=== PATIENT | female | born 1970 | race Hispanic/Latino ===

== ENCOUNTER 2017-04-28 21:56 | Emergency (ER) | payer MEDICAID ==
[2017-04-28 22:11] VITALS: BP 149/91
--- NOTE | 2017-05-02 00:27 | ED Elopement Review ---
ED Pt Elopement review - Call Back decision Pt Call Back Decision: Pt to F/U with PMD
== END 2017-04-29 06:24 | disposition left against medical advice (07) ==
LOC: ED 21:56
DX: R53.1 Weakness (principal); Z53.21 Procedure and treatment not carried out due to patient leaving prior to being seen by health care provider

== ENCOUNTER 2019-06-09 08:20 | Emergency (ER) | payer MEDICAID ==
[2019-06-09 08:31] VITALS: BP 177/96
[2019-06-09] MEDS ORDERED: NORCO 5/325 PO ONE (09:09)
--- NOTE | 2019-06-09 09:25 | Emergency Department Report ---
HPI - General Chief Complaint: Fall Time Seen by Provider: 06/09/19 08:53 - HPI HPI: 48-year-old female presents to the emergency department with complaint of some right lower rib pain and a cough. She says that she fell in the shower about 6 days ago onto that lower right side of the chest. She went to [facility] for similar symptoms, 2 days ago, but says that they focused mostly on her abdomen and she is unsure whether they got any imaging of her chest or ribs. She continues to have discomfort and now has developed a mixed dry and productive cough. She has not taken anything for her symptoms prior to presentation. She has a past medical history of congestive heart failure and hypertension. Her primary care physician is Dr. Osborne. She is a tobacco smoker but denies any illicit drug use. ED Past Medical Hx - Past Medical History Hx Hypertension: Yes Hx Congestive Heart Failure: Yes Additional medical history: Hep C - Surgical History Past Surgical History?: Yes Additional Surgical History: Tubal ligation - Social History Smoking Status: Current Every Day Smoker Substance Use Type: None - Medications Home Medications: Home Medications Medication Instructions Recorded Confirmed Last Taken Type HYDROcodone/APAP 5-325 [[place] 1 - 2 each PO Q4-6H PRN #15 tablet 12/24/13 Unknown Rx 5/325 mg] Ibuprofen [Motrin 800 MG tab] 800 mg PO Q8H PRN #20 tablet 12/24/13 Unknown Rx Labetalol [Labetalol 200mg TAB] 200 mg PO TID 12/24/13 12/24/13 Unknown History ALBUTEROL Inhaler (OR & NICU) 2 puff IH QID PRN #1 inhalation 06/09/19 Unknown Rx [ProAir HFA Inhaler] guaiFENesin/CODEINE [Robitussin AC] 5 ml PO Q6H PRN #100 ml 06/09/19 Unknown Rx ED Review of Systems ROS: Stated complaint: FALL/RT SIDE PAIN/COUGH Other details as noted in HPI Comment: All other systems reviewed and negative Constitutional: denies: chills, fever Eyes: denies: eye pain, vision change Respiratory: cough. denies: shortness of breath Cardiovascular: chest pain (right lower lateral chest/rib pain). denies: edema Gastrointestinal: denies: abdominal pain, vomiting Musculoskeletal: denies: back pain, arthralgia Neurological: denies: headache, weakness Physical Exam - Physical Exam Vital Signs: Vital Signs 06/09/19 08:30 Temperature 97.7 F Pulse Rate 90 Respiratory 19 Rate Blood Pressure 177/96 O2 Sat by Pulse 97 Oximetry Physical Exam: GENERAL: The patient is well-developed well-nourished. HENT: Normocephalic. Atraumatic. Patient has moist mucous membranes. EYES: Extraocular motions are intact. Pupils equal reactive to light bilate rally. NECK: Supple. Trachea is midline. CHEST/LUNGS: Clear to auscultation. There is no respiratory distress noted. There is some reproducible tenderness to palpation along the right lower lateral chest wall/rib cage but no obvious deformity. HEART/CARDIOVASCULAR: Regular. A productive sounding cough heard during examination. No tachypnea or accessory muscle use. There is no tachycardia. There is no murmur. ABDOMEN: Abdomen is soft, nontender. Patient has normal bowel sounds. There is no abdominal distention. SKIN: Skin is warm and dry. NEURO: The patient is awake, alert, and oriented. The patient is cooperative. The patient has no focal neurologic deficits. Normal speech. MUSCULOSKELETAL: There is no tenderness or deformity. There is no evidence of acute injury. ED Course Vital Signs 06/09/19 08:30 Temperature 97.7 F Pulse Rate 90 Respiratory 19 Rate Blood Pressure 177/96 O2 Sat by Pulse 97 Oximetry ED Medical Decision Making - Radiology Data Radiology results: image reviewed interpreted by me: X-ray of the chest with right-sided rib series does not show any fracture, pneumothorax, focal consolidation, pneumonia, pleural effusions, or any other acute process. - Medical Decision Making Patient presents with continued right lower rib pain after falling in the shower about 6 days ago. She was arty seen at another emergency department and apparently they focused on her abdomen at that time without any acute process found. She does have a cough heard during examination but no signs of any respiratory distress. The chest x-ray did not show any pneumonia, pleural eff usions, focal consolidation, rib fracture, pneumothorax, or any other acute process. Patient was given a pain pill for her discomfort. Vital signs stable throughout her ED course. She appears safe for discharge home at this time. She's been given an albuterol inhaler, some Robitussin-AC for her cough and discomfort, and encouraged to follow up with her primary care physician. She will return to the emergency Department with any worsening of her symptoms or any acute distress. - Differential Diagnosis rib fracture, pneumothorax, pneumonia, CHF Critical Care Time: No Critical care attestation.: If time is entered above; I have spent that time in minutes in the direct care of this critically ill patient, excluding procedure time. ED Disposition Clinical Impression: Cough Bruised ribs Qualifiers: Encounter type: initial encounter Laterality: right Qualified Code(s): S20.211A - Contusion of right front wall of thorax, initial encounter Hypertension Qualifiers: Hypertension type: essential hypertension Qualified Code(s): I10 - Essential (primary) hypertension Disposition: TO HOME OR SELFCARE Is pt being admited?: No Condition: Stable Instructions: Hypertension (ED) Additional Instructions: The chest x-ray did not show any rib fracture and the lungs appear clear. You most likely have a rib contusion or bruised ribs. This obviously can still be q uite painful, but she will need to remember to continue to take at least 10 deep breaths per hour while awake to avoid developing pneumonia. I have prescribed for you a cough medication to be taken at night or when you have no responsibilities. Follow-up with your primary care physician. Return to the emergency Department with any worsening of your symptoms or any acute distress. Please try and quit smoking. Take your blood pressure medications as prescribed. Try and stay away from foods that are high in salt and caffeinated products. Keep a blood pressure log. Prescriptions: ALBUTEROL Inhaler (OR & NICU) [ProAir HFA Inhaler] 2 puff IH QID PRN #1 inhalation PRN Reason: Shortness Of Breath guaiFENesin/CODEINE [Robitussin AC] 5 ml PO Q6H PRN #100 ml PRN Reason: Cough Referrals: PRIMARY CARE, [Primary Care Provider] - 2-3 Days Time of Disposition: 10:11
--- NOTE | 2019-06-09 10:04 | XRay Report ---
RIGHT RIBS, PA CHEST RADIOGRAPH HISTORY: Fall 6 days ago in a bathtub. Right chest wall pain. COMPARISON: None. TECHNIQUE: 3 views of the right ribs were obtained. Single view of the chest also obtained. FINDINGS: Right Ribs: Bones: No fracture or dislocation. Joint spaces: Maintained. Soft tissues: No significant abnormality. Chest: Cardiomediastinal silhouette: Normal cardiac size. Normal mediastinal contours. Lungs: Normal expansion. Normal lung aeration. No pleural effusions. No pneumothorax. Pulmonary vascularity: Normal. Additional findings: None. IMPRESSION: Normal chest and ribs. Signer Name: Erasmo Hoover MD Signed: 06/09/2019 10:00 AM Workstation Name: [id number]
== END 2019-06-09 10:28 | disposition home or self-care (01) ==
LOC: ED 08:20
DX: S20.211A Contusion of right front wall of thorax, initial encounter (principal); I11.0 Hypertensive heart disease with heart failure; I50.9 Heart failure, unspecified; F17.200 Nicotine dependence, unspecified, uncomplicated; Z86.19 Personal history of other infectious and parasitic diseases; Z98.51 Tubal ligation status; Z79.899 Other long term (current) drug therapy; W18.12XA Fall from or off toilet with subsequent striking against object, initial encounter; Y93.89 Activity, other specified; Y92.89 Other specified places as the place of occurrence of the external cause; Y99.8 Other external cause status
CPT/HCPCS: 99283

== ENCOUNTER 2021-06-20 13:34 | Emergency (ER) | payer MEDICAID ==
[2021-06-20 13:45] VITALS: BP 172/78
[2021-06-20 15:00] LABS: Bilirubin,Urine NEG (Negative); Blood,Urine SM (Negative); Color,Urine Straw (Yellow); HCG Qualitative,Urine Negative (Negative); Protein,Urine <15 mg/dL mg/dL (Negative); RBC,Urine < 1.0 /HPF (0.0-6.0); Urobilinogen,Urine < 2.0 mg/dL (<2.0)
--- NOTE | 2021-06-20 15:30 | Emergency Department Report ---
ED Female HPI - General Chief complaint: Vaginal Bleeding Stated complaint: VAGINAL BLEEDING Time Seen by Provider: 06/20/21 14:15 Source: patient Mode of arrival: Ambulatory Limitations: No Limitations - History of Present Illness Initial comments: 50-year-old female presents to the emergency room stating she is having vaginal bleeding after having no menstrual cycle in 8 years. She reports weakness. She does have a past medical history of CHF and hypertension but does not take any meds. She complains of lower abdominal pain and back pain with weakness. She does admit that she drinks daily and smokes cigarettes. She has not seen a provider in over 5 years. MD Complaint: vaginal bleeding -: This morning Location: suprapubic Severity scale (0 -10): 3 Quality: aching Consistency: constant Improves with: none Worsens with: none Are you Now?: No - Related Data Home Medications Medication Instructions Recorded Confirmed Last Taken labetaloL [Labetalol 200mg TAB] 200 mg PO TID 12/24/13 12/24/13 Unknown Previous Rx's Medication Instructions Recorded Last Taken Type HYDROcodone/APAP 5-325 [[place] 1 - 2 each PO Q4-6H PRN #15 tablet 12/24/13 Unknown Rx 5/325 mg] Ibuprofen [Motrin 800 MG tab] 800 mg PO Q8H PRN #20 tablet 12/24/13 Unknown Rx Albuterol Mdi (or & Nicu Only) 2 puff IH QID PRN #1 inhalation 06/09/19 Unknown Rx [ProAir HFA Inhaler] guaiFENesin/CODEINE [Robitussin AC] 5 ml PO Q6H PRN #100 ml 06/09/19 Unknown Rx Allergies Allergy/AdvReac Type Severity Reaction Status Date / Time No Known Allergies Allergy Verified 06/20/21 13:44 ED Review of Systems ROS: Stated complaint: VAGINAL BLEEDING Other details as noted in HPI Comment: All other systems reviewed and negative ED Past Medical Hx - Past Medical History Hx Hypertension: Yes Hx Congestive Heart Failure: Yes Additional medical history: Hep C - Surgical History Additional Surgical History: Tubal ligation - Social History Smoking Status: Current Every Day Smoker Substance Use Type: None - Medications Home Medications: Home Medications Medication Instructions Recorded Confirmed Last Taken Type HYDROcodone/APAP 5-325 [[place] 1 - 2 each PO Q4-6H PRN #15 tablet 12/24/13 Unknown Rx 5/325 mg] Ibuprofen [Motrin 800 MG tab] 800 mg PO Q8H PRN #20 tablet 12/24/13 Unknown Rx labetaloL [Labetalol 200mg TAB] 200 mg PO TID 12/24/13 12/24/13 Unknown History Albuterol Mdi (or & [place]u Only) 2 puff IH QID PRN #1 inhalation 06/09/19 Unknown Rx [ProAir HFA Inhaler] guaiFENesin/CODEINE [Robitussin AC] 5 ml PO Q6H PRN #100 ml 06/09/19 Unknown Rx ED Physical Exam - General Limitations: No Limitations General appearance: alert, in no apparent distress - Head Head exam: Present: atraumatic, normocephalic - Eye Eye exam: Present: normal appearance - ENT ENT exam: Present: mucous membranes moist - Neck Neck exam: Present: normal inspection - Respiratory Respiratory exam: Present: normal lung sounds bilaterally. Absent: respiratory distress - Cardiovascular Cardiovascular Exam: Present: regular rate, normal rhythm. Absent: systolic murmur, diastolic murmur, rubs, gallop - GI/Abdominal GI/Abdominal exam: Present: soft, normal bowel sounds - Extremities Exam Extremities exam: Present: normal inspection - Back Exam Back exam: Present: normal inspection - Neurological Exam Neurological exam: Present: alert, oriented X3 - Psychiatric Psychiatric exam: Present: normal affect, normal mood - Skin Skin exam: Present: warm, dry, intact, normal color. Absent: rash ED Course Vital Signs 06/20/21 13:44 Temperature 98.2 F Pulse Rate 93 H Respiratory 14 Rate Blood Pressure 172/78 [Left] O2 Sat by Pulse 99 Oximetry ED Medical Decision Making - Medical Decision Making 50-year-old female presents to the emergency room stating she is [place] ving vaginal bleeding after having no menstrual cycle in 8 years. She reports weakness. She does have a past medical history of CHF and hypertension but does not take any meds. She complains of lower abdominal pain and back pain with weakness. She does admit that she drinks daily and smokes cigarettes. She has not seen a provider in over 5 years. Urinalysis urine test negative. Discussed with patient she has to be seen by MEDICAL INSTRUMENT TECHNICIAN as postmenopausal bleeding and want to be sure there is no cancer. I discussed this with patient. Patient has been referred to several community MEDICAL INSTRUMENT TECHNICIAN's. - Differential Diagnosis UTI, fibroid, uterine cancer Critical care attestation.: If time is entered above; I have spent that time in minutes in the direct care of this critically ill patient, excluding procedure time. ED Disposition Clinical Impression: Post-menopausal bleeding Disposition: 01 HOME / SELF CARE / HOMELESS Is pt being admited?: No Does the pt Need Aspirin: No Condition: Stable Instructions: Postmenopausal Bleeding, [id number] Additional Instructions: It is very important that you follow-up with his MEDICAL INSTRUMENT TECHNICIAN as your urinalysis and test is negative postmenopausal bleeding it makes a concern for uterine cancer. You can also have fibroids. I have listed several MEDICAL INSTRUMENT TECHNICIAN's below for your convenience. Referrals: PRIMARY CARE, [Primary Care Provider] - 3-5 Days [facility] [Provider Group] - 3-5 Days [facility] [Provider Group] - 3-5 Days [facility] [Provider Group] - 3-5 Days Forms: Work/School Release Form(ED) Time of Disposition: 15:30
== END 2021-06-20 16:34 | disposition home or self-care (01) ==
LOC: ED 13:34
DX: N95.0 Postmenopausal bleeding (principal); I10 Essential (primary) hypertension; F17.200 Nicotine dependence, unspecified, uncomplicated; Z98.51 Tubal ligation status; Z79.899 Other long term (current) drug therapy
CPT/HCPCS: 81001; 81025; 99283

== ENCOUNTER 2022-04-11 07:04 | Day surgery (SDC) | payer MEDICAID ==
[~2022-04-11 07:04] MED LIST: ACETAMINOPHEN 500 MG TAB PO SCH; CELECOXIB 200 MG CAP PO NR; GABAPENTIN 300 MG CAP PO NR; LACTATED RINGERS 1,000 ML IV SCH; MIDAZOLAM 2 MG/2 ML INJ IV NR
[2022-04-11] MEDS ORDERED: oxyCODONE /ACETAMINOPHEN 5-325MG TAB PO PRN (08:52)
[2022-04-11] MEDS ORDERED: ALBUTEROL 2.5 MG/3 ML NEBU IH PRN (08:52)
--- NOTE | 2022-04-11 08:52 | Anesthesia Consultation ---
Anesthesia Consult and Med Hx Date of service: 04/11/22 - Airway Anesthetic Teeth Evaluation: Dentures (upper and lower) ROM Head & Neck: Adequate Mental/Hyoid Distance: Adequate Mallampati Class: Class II Intubation Access Assessment: Probably Good - Pulmonary Exam CTA: No (mild, intermittent end-expiratory wheezes that cleared with cough) - Cardiac Exam Cardiac Exam: RRR - Pre-Operative Health Status ASA Pre-Surgery Classification: ASA3 Proposed Anesthetic Plan: General - Pulmonary Hx Smoking: Yes (1/2 PPD) Hx Respiratory Symptoms: No (occasional dough; chronic, unchanged) SOB: No Home Oxygen Therapy: No - Cardiovascular System Hx Hypertension: Yes (off meds x1yr) Hx Heart Attack/AMI: No - Central Nervous System CVA: No - Endocrine Hx Renal Disease: No Hx Cirrhosis: No Hx Liver Disease: Yes (HCV) Hx Insulin Dependent Diabetes: No - Other Systems Hx Substance Use: Yes (THC weekly) - Additional Comments Anesthesia Medical History Comments: No hx anesthetic complications. Will give preop albuterol neb.
--- NOTE | 2022-04-11 08:52 | Anesthesia Day of Surgery ---
Anesthesia Day of Surgery - Day of Surgery Patient Examined: Yes Patient H&P Reviewed: Yes Patient is NPO: Yes
[2022-04-11] MEDS ORDERED: HYDROmorphone 0.5 MG/0.5 ML INJ IV PRN (08:53)
[2022-04-11] MEDS ORDERED: SODIUM CHLORIDE 0.9% IRR 1,500 ML BOTTLE IR ONE (12:33)
--- NOTE | 2022-04-11 15:28 | Post Anesthesia Evaluation ---
- Post Anesthesia Evaluation Patient Participated: Yes Airway Patent: Yes Stable Respiratory Function: Yes Nausea/Vomiting: No Temp > 96.8F: Yes Pain Manageable: Yes Adequeate Hydration: Yes Anesthesia Complications: No
[2022-04-11 18:47] VITALS: BP 156/75
--- NOTE | 2022-04-19 14:18 | Procedure Note ---
Date of procedure: 04/11/22 Pre-op diagnosis: Severe arthritis left thumb Post-op diagnosis: same Procedure: left 1st CMC arthroplasty The patient was brought to the OR placed in the OR table in supine position following induction intubation by anesthesia the patient's left upper extremity was prepped and draped in the usual sterile manner. A timeout procedure was done to identify the patient and the correct operative site. The arm was exsanguinated followed by inflation of the pneumatic tourniquet to 250 mmHg. A dorsal incision was made over the CMC joint beginning at the midpoint of the first metacarpal and extending proximally towards the distal distal radius versus taken down through skin and subcu using loupe magnification the neurovascular structures were identified and retracted out of the operative field next the capsule over the CMC joint was incised the arthritic CMC joint was visualized next using a combination of rongeurs and curettes the trapezium was excised piecemeal next the flexor carpi radialis tendon was identified along the volar surface of the wrist and was traced distally to the volar surface of the of the remaining portion of trapezium next the tendon was harvested using secondary incisions along the volar surface of the forearm following harvesting of our tendon graft a tunnel was created in the proximal portion of the first metacarpal and the tendon graft was brought through the tunnel and then attached on itself along the proximal metacarpal next the remaining tendon was rolled up in an anchovy type pattern and was stitched using was 2-0 Vicryl this tendon graft was then placed in the void left by the removal of our trapezium following this the wound was irrigated and the soft tissue were closed in a standard routine fashion to point 6.2 smooth K wires were used to stabilize the construct following his routine postop dressings were applied as well as a well-padded thumb spica splint patient tolerated the procedure she was taken to postanesthesia recovery in a stable condition Anesthesia: GETA Surgeon: DAVID HOUSER (Saqib Chew, [facility]) Estimated blood loss: minimal Pathology: none Condition: stable Disposition: PACU
== END 2022-04-11 15:30 | disposition home or self-care (01) ==
LOC: OR 07:04
PROVIDERS: ATTEND Orthopaedic Surgery
DX: M18.12 Unilateral primary osteoarthritis of first carpometacarpal joint, left hand (principal); G43.909 Migraine, unspecified, not intractable, without status migrainosus; I10 Essential (primary) hypertension; K21.9 Gastro-esophageal reflux disease without esophagitis; F32.9 Major depressive disorder, single episode, unspecified; F41.9 Anxiety disorder, unspecified; F17.210 Nicotine dependence, cigarettes, uncomplicated; Z79.899 Other long term (current) drug therapy; Z98.49 Cataract extraction status, unspecified eye; Z98.51 Tubal ligation status; Z87.440 Personal history of urinary (tract) infections; Z72.89 Other problems related to lifestyle

== ENCOUNTER 2022-05-04 11:40 | Emergency (ER) | payer MEDICAID ==
[2022-05-04] MEDS ORDERED: cloNIDine 0.2 MG TAB PO STA (16:44)
[2022-05-04 18:01] VITALS: BP 165/89
--- NOTE | 2022-05-04 18:39 | Emergency Department Report ---
ED General Adult HPI - General Chief complaint: High BP Stated complaint: HYPERTENSION Time Seen by Provider: 05/04/22 16:23 Source: patient Mode of arrival: Ambulatory Limitations: No Limitations - History of Present Illness Initial comments: 51-year-old female with known history of hypertension treated with labetalol who is been on her medication for the last week presents emergency department complaining of elevation in blood pressure and 60 medication refill. She reports no chest pain, no palpitations, no fever, chills, sweats. No nausea, no vomiting, no headache or presyncope, no loss of vision. -: Gradual Radiation: non-radiation Severity scale (0 -10): 0 Quality: dull Consistency: constant Improves with: none Worsens with: none Associated Symptoms: denies: confusion, chest pain, cough, diaphoresis, loss of appetite, malaise, nausea/vomiting, shortness of breath, syncope, weakness Treatments Prior to Arrival: none - Related Data Home Medications Medication Instructions Recorded Confirmed Last Taken HYDROcodone/APAP 5-325 1 tab PO PRN PRN 02/06/22 04/10/22 Unknown Previous Rx's Medication Instructions Recorded Last Taken Type HYDROcodone/APAP 5-325 [[place] 1 each PO Q6HR PRN #30 tablet 04/11/22 Unknown Rx 5-325 mg TAB] labetaloL [Labetalol 100mg TAB] 100 mg PO BID #30 05/04/22 Unknown Rx Allergies Allergy/AdvReac Type Severity Reaction Status Date / Time No Known Allergies Allergy Verified 03/07/22 17:29 ED Review of Systems ROS: Stated complaint: HYPERTENSION Other details as noted in HPI Comment: All other systems reviewed and negative ED Past Medical Hx - Past Medical History Hx Hypertension: Yes (off meds x1yr) Hx Heart Attack/AMI: No Hx Congestive Heart Failure: Yes Hx GERD: Yes Hx Liver Disease: Yes (HCV) Hx Renal Disease: No Hx Arthritis: Yes (LEFT THUMB) Hx Headaches / Migraines: Yes (MIGRAINES- NOT RECENT) Additional medical history: Hep C - Surgical History Additional Surgical History: Tubal ligation - Social History Smoking Status: Current Every Day Smoker - Medications Home Medications: Home Medications Medication Instructions Recorded Confirmed Last Taken Type HYDROcodone/APAP 5-325 1 tab PO PRN PRN 02/06/22 04/10/22 Unknown History HYDROcodone/APAP 5-325 [[place] 1 each PO Q6HR PRN #30 tablet 04/11/22 Unknown Rx 5-325 mg TAB] labetaloL [Labetalol 100mg TAB] 100 mg PO BID #30 05/04/22 Unknown Rx ED Physical Exam - General Limitations: No Limitations General appearance: alert, in no apparent distress - Head Head exam: Present: atraumatic, normocephalic - Eye Eye exam: Present: normal appearance, PERRL, EOMI Pupils: Present: normal accommodation - ENT ENT exam: Present: mucous membranes moist - Neck Neck exam: Present: normal inspection, full ROM - Respiratory Respiratory exam: Present: normal lung sounds bilaterally. Absent: respiratory distress, wheezes, rales - Cardiovascular Cardiovascular Exam: Present: regular rate, normal rhythm. Absent: systolic murmur, diastolic murmur, rubs, gallop - GI/Abdominal GI/Abdominal exam: Present: soft, normal bowel sounds - Extremities Exam Extremities exam: Present: normal inspection, normal capillary refill - Back Exam Back exam: Present: normal inspection - Neurological Exam Neurological exam: Present: alert, oriented X3 - Psychiatric Psychiatric exam: Present: normal affect, normal mood - Skin Skin exam: Present: warm, dry, intact, normal color. Absent: rash ED Course Vital Signs 05/04/22 05/04/22 05/04/22 11:45 16:35 16:49 Temperature 98.4 F Pulse Rate 106 H 93 H 63 Respiratory 18 13 Rate Blood Pressure 163/93 Blood Pressure 190/100 202/104 [Left] O2 Sat by Pulse 98 100 Oximetry 05/04/22 18:00 Temperature Pulse Rate 87 Respiratory 12 Rate Blood Pressure Blood Pressure 165/89 [Left] O2 Sat by Pulse 99 Oximetry Critical care attestation.: If time is entered above; I have spent that time in minutes in the direct care of this critically ill patient, excluding procedure time. ED Disposition Disposition: HOME / SELF CARE / HOMELESS Condition: Stable Instructions: Hypertension, Adult, [id number], Managing Your Hypertension, Hypertension, Adult, Hypertension (ED) Prescriptions: labetaloL [Labetalol 100mg TAB] 100 mg PO BID #30 Referrals: ALEJANDRO MINER MD [Primary Care Provider] - 3-5 Days
== END 2022-05-04 18:27 | disposition home or self-care (01) ==
LOC: ED 11:40
DX: I11.0 Hypertensive heart disease with heart failure (principal); I50.9 Heart failure, unspecified; K21.9 Gastro-esophageal reflux disease without esophagitis; K76.9 Liver disease, unspecified; M19.90 Unspecified osteoarthritis, unspecified site; G43.909 Migraine, unspecified, not intractable, without status migrainosus; Z79.899 Other long term (current) drug therapy; F17.200 Nicotine dependence, unspecified, uncomplicated
CPT/HCPCS: 99282